=== PATIENT | male | born 1980 | race Caucasian/White ===

== ENCOUNTER → 2021-03-21 03:43 | Outpatient (CLI) | payer BC, SELFPAY ==
[2021-03-21 21:56] LABS: SARS-CoV-2 RNA PCR Positive
== END ==
PROVIDERS: PCP Family Medicine Adolescent Medicine; Visit Provider Physician Assistant
DX: U07.1 COVID-19 (principal)
CPT/HCPCS: C9803; U0003; U0005

== ENCOUNTER 2022-05-09 18:32 | Emergency (ER) | payer BC, SELFPAY ==
[2022-05-09 18:34] VITALS: BP 168/108; PULSE 88; RESP 18; TEMP 37.1; O2SAT 98
--- NOTE | 2022-05-09 18:53 | PC.NURSE ---
EDP at bedside to assess pt.
--- NOTE | 2022-05-09 18:56 | ED.GENADULT ---
HPI - General Adult General Chief complaint: Unspecified Stated complaint: RECTAL BLEEDING, ?HEMORRHOID Time Seen by Provider: 05/09/22 18:46 History of Present Illness HPI narrative: 42-year-old male here for evaluation of perirectal pain and bleeding when he wipes with toilet tissue for the past 10 days. Patient states that he has a history of anal fissures and states it feels similar. He has attempted sitz bath's and topical Vaseline without relief of his symptoms. Reports chronic loose stools due to metformin use. No lightheadedness, syncope, fevers or chills. Related Data Allergies Allergy/AdvReac Type Severity Reaction Status Date / Time meloxicam AdvReac Severe Hives Verified 02/05/22 15:24 Review of Systems Review of Systems: Gen.: Denies fevers or chills Eyes: Denies eye pain or visual change ENT: Denies congestion Respiratory: Denies shortness of breath or cough CV: Denies chest pain or palpitations GI: Denies abdominal pain nausea, emesis or diarrhea reports perirectal pain and bleeding. Denies burning, urgency, frequency or hematuria Musculoskeletal: Denies back pain or muscle pain Neuro: Denies numbness, tingling, weakness or focal weakness Skin: Denies rash Except as documented, all other systems reviewed and negative PMFSH Social History Social History Smoking status: Former smoker Exam Narrative: APPEARANCE: Well appearing, no pain in distress, well-nourished. Head: Normocephalic and atraumatic. EYES: PERRLA/EOMI, conjunctivae clear NOSE: No nasal drainage EARS: External ear normal in appearance THROAT: Oropharynx is clear. Mucous membranes are moist. NECK: Supple. No adenopathy, no masses. RESPIRATORY: Airway patent, respirations nonlabored. Clear to auscultation bilaterally, no rales, rhonchi, wheezing. CARDIOVASCULAR: Regular rate and rhythm without murmurs, rubs, or gallops. : Patient has a 0.5cm external hemorrhoid at the 7 o'clock position that is tender to palpation. No active bleeding. ABDOMINAL: Normoactive bowel sounds. Soft, nontender, nondistended. No rebound tenderness or guarding. MUSCULOSKELETAL: Extremities are warm and well-perfused. Moves all extremities well. No edema. NEURO: Normal speech. No focal neurologic deficits. SKIN: Skin is warm and dry. No rashes. PSYCHIATRIC: Normal affect/mood.. Course Vital Signs Vital signs: Vital Signs Temperature 98.8 F 05/09/22 18:34 Pulse Rate 88 05/09/22 18:34 Respiratory Rate 18 05/09/22 18:34 Blood Pressure 168/108 H 05/09/22 18:34 Pulse Oximetry 98 05/09/22 18:34 Temperature 98.8 F 05/09/22 18:34 Pulse Rate 88 05/09/22 18:34 Respiratory Rate 18 05/09/22 18:34 Blood Pressure 168/108 H 05/09/22 18:34 Pulse Oximetry 98 05/09/22 18:34 Medical Decision Making MDM Narrative Medical decision making narrative: 42-year-old male here for evaluation of perirectal pain and swelling with evidence of an external hemorrhoid on exam. Patient has no systemic symptoms and has normal vital signs. Will DC home with Anusol suppositories and GI follow-up. No indication for labs or imaging at this time. Return precautions were discussed and he voiced understanding. Vital Signs Vital Signs: Vital Signs Temperature 98.8 F 05/09/22 18:34 Pulse Rate 88 05/09/22 18:34 Respiratory Rate 18 05/09/22 18:34 Blood Pressure 168/108 H 05/09/22 18:34 Pulse Oximetry 98 05/09/22 18:34 Temperature 98.8 F 05/09/22 18:34 Pulse Rate 88 05/09/22 18:34 Respiratory Rate 18 05/09/22 18:34 Blood Pressure 168/108 H 05/09/22 18:34 Pulse Oximetry 98 05/09/22 18:34 Discharge Plan Discharge Clinical Impression: External hemorrhoid Patient Disposition: Home, Self-Care Condition: Stable Instructions: Antibiotic Form, Hemorrhoids (ED) Additional Instructions: You were found to have an external hemorrhoid on exam. Please use the Anusol suppositories nightly. Use stool soft
== END 2022-05-09 19:13 | disposition home or self-care (01) ==
LOC: ANHED 18:56
PROVIDERS: Emergency Provider Physician Assistant; PCP Family Medicine Adolescent Medicine
DX: K64.4 Residual hemorrhoidal skin tags (principal)
CPT/HCPCS: 99283

== ENCOUNTER 2022-05-15 01:06 | Day surgery (SDC) | payer BC, SELFPAY ==
[2022-05-14 11:29] VITALS: BMI 37.5
--- NOTE | 2022-05-14 11:33 | PC.NURSE ---
Report to the Outpatient Waiting Room, entrance under the green pavilion located off [facility], at time 1200 on date 05/15/22. Planned Procedure Time: 1400. Time changes happen often and if your time is changed the preop area will call you the afternoon before. - You and your visitor will be asked to self-screen and do not enter if you have any COVID symptoms. - Only one visitor is requested with a max of two and NO children visitors are allowed at this time. - The patient visitor may be requested to leave or wait in car when not with patient due to distancing restrictions. - A mask is optional within the hospital at this time. Patients may ONLY have clear liquids THE REST OF TODAY - No food OR DRINK from midnight until time of surgery Take the following medications with a SIP of water the morning of surgery: ANTIBIOTIC DO NOT STOP ANY OF YOUR OTHER PRESCRIPTION MEDICATIONS PRIOR TO SURGERY EXCEPT THE FOLLOWING Medications to discontinue per physician: N/A Date to take last dose: N/A DULCOLAX 5MG AT BEDTIME FLEETS ENEMA NIGHT BEFORE AND MORNING OF SURGERY Please no make-up, nail nepali, hairspray, perfume, deodorant, or body powder the day of surgery. No jewelry (including any body piercings) or valuables the day of surgery, leave them at home. Please take a shower or bath the night before, or the morning of, surgery with an antibacterial soap. Wear comfortable, loose fitting clothing. - Jewelry must be removed prior to entering the operating room. Rings and piercings that are not removed may be cut off. - The hospital will not accept responsibility for valuables. - Please leave all valuables, including medications, at home the day of surgery. If you are going home after surgery, a licensed line haul driver must drive you home. - NO public transportation without another adult if you receive anesthesia. - We recommend that an adult stay with you for 24 hours following discharge. - We also recommend that you do not drive, make important decision, drink alcoholic beverages, or take any drugs that were not prescribed by your health care provider for at least 24 hours after your discharge time. Follow any additional instructions given to you from your surgeon. If you or anyone in your household have experienced Covid symptoms in the past week, please notify your surgeon or the nurse liaison at the phone number below for possible testing. Telephone instructions given to PT - BIBI CHIN and asked if any additional questions and then verbalized understanding. Patient advised to call surgeon office or pre surgery nurse liaison [phone] if any additional questions.
[2022-05-15] VITALS (8 sets, daily range): BP systolic 133–164; BP diastolic 88–117; PULSE 64–87; RESP 16–22; TEMP 36.2–36.3; O2SAT 97–99
--- NOTE | 2022-05-15 10:43 | WPDHPUPDATE1 ---
History and Physical Update Update Date/Time: 05/15/22 10:43 History and Physical has been reviewed, including an updated exam of the patient. There are NO changes in the patient's condition. Risks, benefits, and alternatives have been discussed and questions answered. Patient agrees to proceed with procedure.
[2022-05-15] MEDS: ACETAMINOPHEN 500 MG TABLET 1000 MG PO (11:13)
[2022-05-15] MEDS: LACTATED RINGERS 1,000 ML 30 ML IV CONT ×3 (11:15→13:28)
[2022-05-15] MEDS: KETOROLAC 15 MG/ML VIAL (*BKC) IV PUSH (11:23)
[2022-05-15 11:34] LABS: Anion Gap 10 mmol/L (8-16); Blood Urea Nitrogen 13 mg/dL (9-20); Calcium 9.2 mg/dL (8.4-10.2); Carbon Dioxide 29 mmol/L (22-30); Chloride 99 mmol/L (98-107); Estimated CRCL calculation 122 ml/min; Estimated Glomerular Filt Rate > 60; Glucose 310 mg/dL (65-110); Potassium 4.6 mmol/L (3.4-5.0); Sodium 138 mmol/L (137-145)
--- NOTE | 2022-05-15 11:54 | SUR.PREOP ---
1154-DR. FIGUEROA AWARE OF THIS AM [facility] GLUCOSE 310.
--- NOTE | 2022-05-15 12:06 | WPDANESEPPF ---
Anes - Initial Pre Proc Eval Procedure: Operation Date: 05/15/22 14:00 Proposed Procedures p Excision Thrombosed External Hemorrhoid - Eric Finnegan MD Date/Time: 05/15/22 12:06 Surgeon: Eric Finnegan MD Pre Op Diagnosis: Thrombosed Ext Hemorrhoid Patient Data Age: 42 Gender: M Height: 1.78 m Weight: 116.6 kg Last Vital Signs Temp 36.3 C L 05/15/22 10:25 Pulse 87 05/15/22 10:25 Resp 20 05/15/22 10:25 BP 147/96 H 05/15/22 10:25 Pulse Ox 99 05/15/22 10:25 O2 Del Method Room Air 05/15/22 10:25 Allergies Allergy/AdvReac Type Severity Reaction Status Date / Time meloxicam AdvReac Severe Hives Verified 05/15/22 10:29 Home Medications Medication Instructions Recorded Confirmed Type testosterone (AndroGel) 2 pump topical DAILY #150 grams 02/05/22 05/15/22 Rx lisinopril 20 mg tablet 20 mg PO HS 05/15/22 05/15/22 History metformin 500 mg tablet,extended 2,000 mg PO HS 05/15/22 05/15/22 History release 24 hr sitagliptin phosphate 100 mg 100 mg PO HS 05/15/22 05/15/22 History tablet (Januvia) Laboratory Tests 05/15/22 11:12 Sodium 138 mmol/L mmol/L (137-145) Potassium 4.6 mmol/L mmol/L (3.4-5.0) Chloride 99 mmol/L mmol/L (98-107) Carbon Dioxide 29 mmol/L mmol/L (22-30) Anion Gap 10 mmol/L mmol/L (8-16) BUN 13 mg/dL mg/dL (9-20) Creatinine 0.90 mg/dL mg/dL (0.7-1.3) Estim Creat Clear Calc 122 ml/min ml/min Estimated GFR > 60 (59 - ) Glucose 310 mg/dL H mg/dL (65-110) Calcium 9.2 mg/dL mg/dL (8.4-10.2) Patient hx anesthesia problems: none Family hx anesthesia problems: none Results Review: All pre-operative results and documents have been reviewed as part of the pre-operative evaluation. [facility] Past Medical History Medical History Abscess, perianal Hematochezia Obesity Rectal pain Surgical History Surgical History Carpal tunnel syndrome of right wrist 2020 Family History Family History Other Hypertension Social History Social History Smoking packs per day: 1 Smoking cigarettes per day: 20.0 Years smoked: 15 Smoking pack-years: 15.00 Smoking status: Former smoker Tobacco type: cigarettes Smoking end date: 03/01/15 Alcohol intake: current Drinks per week: 2 Substance use: never Substance use type: does not use Living arrangements: with family Spiritual care concerns: No Anes - Eval Final PreProcedure Day of Procedure 05/15/22 12:06 Patient weight: obese Heart: regular rate and rhythm Lungs: clear to auscultation Airway: Mallampati scale class 1 Neurological: alert and oriented Last oral intake: >/= 8 hours ASA classification: III Emergent: no Anesthetic plan: proceed Anesthesia type and monitoring: general GIVS and standard monitoring Results Review: All pre-operative results and documents have been reviewed as part of the pre-operative evaluation. Informed Consent: The patient's anesthetic plan and its attendant risks and benefits were discussed with the patient/family/POA. Questions were solicited and answers provided to the satisfaction of the patient/family/POA.
[2022-05-15] MEDS: ceFAZolin 2 GM/D5W 50 ML 2 GM/50 ML BAG IVPB (12:28)
[2022-05-15] MEDS: BUPivacaine HCL 0.5% 10 ML AMP 20 ML INFILTRATE (13:11)
--- NOTE | 2022-05-15 13:12 | P.OP_ITS ---
Procedure Note - Detailed Date of Procedure 05/15/22 Pre-op Diagnosis Thrombosed Ext Hemorrhoid Post-op Diagnosis Other (Thrombosed external hemorrhoid, prolapsed internal hemorrhoid) Procedure Performed Excision left anterior thrombosed external hemorrhoid, rubber-band ligation prolapsed left anterior internal hemorrhoid Surgeon Eric Finnegan MD [employer] student Anesthesia MAC and Local (0.5% Marcaine with Exparel) Indications Patient has had rectal pain for a few days. He came to the office yesterday and was found to have a thrombosed external hemorrhoid in the right anterior location. He is taken to surgery now for excision. Findings The thrombosed hemorrhoid was in the right anterior location. He also had a prolapsed stage III internal hemorrhoid associated with the thrombosis. Description of Procedure Patient was taken to surgery and placed in prone position. Anesthesia was introduced and he was then placed in prone kemi-knife position. The buttocks were taped apart. Prep and drape was carried out. Inspection of the perianal area was performed. Small Hill-Brody anoscope was introduced and the anal canal was inspected. There was a prolapsed stage III internal hemorrhoid associated with the thrombosed external hemorrhoid both in the right anterior location. We then infiltrated local. 20 cc was infiltrated deep subdermal, 20 cc was infiltrated intra sphincteric. I excised the thrombosed external hemorrhoid. The wound was then closed with running locking 3-0 chromic suture. I then exposed the internal hemorrhoid and it was rubber-band ligated. I checked the remainder of the anal canal and no additional pathology was noted. The thrombosed hemorrhoid was sent to pathology. The wound was made hemostatic with gentle pressure. The wound was dressed with Xeroform gauze fluffs and Promise panties. Patient was then returned to a supine position, awakened and taken to recovery in good condition. Sponge and needle counts were correct x2. Estimated Blood Loss -5 Drains No Packing No Pathology Yes (Right anterior thrombosed external hemorrhoid) Complications No immediate complications Condition Stable Disposition PACU [facility] Billing Surgery - Charge Forward: Surgery Billing (Excision thrombosed external hemorrhoid, rubber-band ligation internal hemorrhoid.)
[2022-05-15 13:16] LABS: Glucose Point of Care 204 mg/dl (65-105)
--- NOTE | 2022-05-15 15:44 | SUR.PHASEII ---
Patient meets discharge criteria. Vital signs stable. IV removed. Patient dressed and awaiting ride home.
== END 2022-05-15 17:00 | disposition home or self-care (01) ==
PROVIDERS: Anesthesiology; PCP Family Medicine Adolescent Medicine; Visit Provider Surgery
PROC: (CPT 46320; principal; 2022-05-15 14:00)
DX: K64.8 Other hemorrhoids (principal); K64.2 Third degree hemorrhoids; Z79.84 Long term (current) use of oral hypoglycemic drugs; E66.9 Obesity, unspecified; Z68.36 Body mass index [BMI] 36.0-36.9, adult; Z87.891 Personal history of nicotine dependence
CPT/HCPCS: 46320; 36415; 80048; 82948; 88304; A9270; C9290; J0690; J1885; J2250; J2270; J2405; J2704; J7120

== ENCOUNTER 2023-09-28 15:57 | Emergency (ER) | payer BC, SELFPAY ==
[2023-09-28 15:58] VITALS: BP 145/99; PULSE 91; RESP 16; TEMP 36.7; O2SAT 99
--- NOTE | 2023-09-28 16:57 | PC.NURSE ---
pt stated he was going to leave and go to [facility].
== END 2023-09-28 16:57 | disposition left against medical advice (07) ==
PROVIDERS: PCP Family Medicine Adolescent Medicine
DX: S60.551A Superficial foreign body of right hand, initial encounter (principal)
CPT/HCPCS: 99199

== ENCOUNTER 2024-02-12 11:44 | Emergency (ER) | payer BC, SELFPAY ==
[2024-02-12 12:04] VITALS: BP 158/96; PULSE 87; RESP 17; TEMP 37.1; O2SAT 100
--- NOTE | 2024-02-12 12:38 | ED.DENTAL ---
HPI - Dental/Oral General Chief complaint: Dental/Oral Stated complaint: Tooth Infection Time Seen by Provider: 02/12/24 12:32 Source: patient and RN notes reviewed Mode of arrival: ambulatory Limitations: no limitations History of Present Illness HPI Narrative: Patient presents today complaining of right lower tooth pain since yesterday. States the tooth broke many years ago and it continues to chip. Denies facial swelling, shortness of breath, difficulty swallowing. Currently rates his pain 5/10 and has been taking aspirin without relief. He does have an appointment in 2 days with a dentist for evaluation. Related Data Allergies Allergy/AdvReac Type Severity Reaction Status Date / Time meloxicam AdvReac Severe Hives Verified 02/12/24 12:23 Review of Systems Review of Systems: CONSTITUTIONAL: Denies body aches, fever, chills, or sweats. EYES: Denies visual changes, redness, or discharge. ENT: Denies rhinorrhea, congestion, sore throat, or otalgia.+ tooth pain CARDIOVASCULAR: Denies chest pain, palpitations, or edema. RESPIRATORY: Denies cough or dyspnea. GASTROINTESTINAL: Denies abdominal pain, nausea, vomiting, or diarrhea. GENITOURINARY: Denies dysuria or hematuria. SKIN: Denies rash, itching, or wounds. MUSCULOSKELETAL: Denies back pain, joint pain, or myalgia. NEUROLOGIC: Denies headache, numbness, tingling, or weakness. PSYCH: Denies depression or anxiety. [facility] Past Medical History Medical History Obesity Hematochezia Rectal pain Abscess, perianal Surgical History Surgical History History of hemorrhoidectomy 05/15/2022 - Excision left anterior thrombosed external hemorrhoid, rubber-band ligation prolapsed left anterior internal hemorrhoid Carpal tunnel syndrome of right wrist 2019 Family History Family History Other Hypertension Social History Social History Smoking packs per day: 1 Smoking cigarettes per day: 20.0 Years smoked: 15 Smoking pack-years: 15.00 Smoking status: Former smoker Tobacco type: cigarettes Smoking end date: 03/01/15 Alcohol intake: current Drinks per week: 2 Substance use: never Substance use type: does not use Living arrangements: with family Spiritual care concerns: No Comments At time of signature, I have reviewed and agree with nursing past medical, surgical, social and family history unless otherwise noted. Please see nursing chart for further information. There is no relevant family history pertinent to the presenting complaint Exam Narrative: GENERAL: Well-appearing, well-nourished, and in no acute distress. HEAD: Normocephalic, atraumatic. EYES: EOMI. No redness or drainage. Conjunctivae normal. ENT: Mucous membranes pink and moist. Tooth number 32 has posterior portion missing. Gumline appears normal. No facial swelling noted. No trismus. NECK: Normal AROM. Supple. No lymphadenopathy. CHEST: No respiratory distress. EXTREMITIES: Normal range of motion. No edema. SKIN: Warm, dry, no rash. Capillary refill normal. Normal skin turgor. NEURO: No focal deficits. Alert and oriented x3. Gait steady. PSYCH: Normal affect. No signs of depression or anxiety. Course Course Level of Care: Express Care Visit Vital Signs Vital signs: Vital Signs Temperature 98.8 F 02/12/24 12:04 Pulse Rate 87 02/12/24 12:04 Respiratory Rate 17 02/12/24 12:04 Blood Pressure 158/96 H 02/12/24 12:04 Pulse Oximetry 100 02/12/24 12:04 Temperature 98.8 F 02/12/24 12:04 Pulse Rate 87 02/12/24 12:04 Respiratory Rate 17 02/12/24 12:04 Blood Pressure 158/96 H 02/12/24 12:04 Pulse Oximetry 100 02/12/24 12:04 Reviewed MDM - Dental/Oral MDM Narrative Medical decision making narrative: Patient will be prescribed a course of amoxicillin for possible infection. Instructed to take Tylenol or ibuprofen for pain. Anticipatory guidance given. Differential Diagnosis Differential diagnosis: Likely gingival abscess, dental caries, toothache, dental abscess and fracture of tooth Critical Care Time Critical Care Time Critical Care Time: No Discharge Plan Discharge Clinical Impression: Fracture of tooth Qualifiers: Encounter type: initial encounter Fracture type: closed Qualified Code(s): S02.5XXA - Fracture of tooth (traumatic), initial encounter for closed fracture Patient Disposition: Home, Self-Care Condition: Stable Instructions: Antibiotic Form Additional Instructions: Please take the amoxicillin as prescribed. Take Tylenol or ibuprofen for pain, if able. Follow-up with your dentist as scheduled. Go to the ER immediately if you develop fever, facial swelling, difficulty breathing or swallowing. Your blood pressure was elevated above 120/80 today at Urgent Care. This puts you above the threshold for follow up. Please schedule a followup visit with your personal physician as soon as possible, for further evaluation and treatment. Even blood pressure exceeding 120/80 may indicate pre-hypertension. Patient Language: Swedish Prescriptions: New amoxicillin 875 mg tablet 875 mg PO Q12H 10 Days Qty: 20 0RF No Action Januvia 100 mg tablet 100 mg PO HS Qty: 90 2RF testosterone [AndroGel] 20.25 mg/1.25 gram (1.62 %) gel in metered-dose pump 2 pump topical DAILY Qty: 150 3RF Rx Instructions: apply 1 pump amount over max area of EACH upper arm and shoulder sildenafil 100 mg tablet 100 mg PO DAILY PRN (Reason: sexual activity) Qty: 6 8RF Rx Instructions: administer 30 minutes to 4 hours before activity atorvastatin 10 mg tablet 10 mg PO DAILY Qty: 90 3RF glimepiride 2 mg tablet 2 mg PO QAM Qty: 90 1RF Rx Instructions: administer with breakfast metformin 500 mg tablet extended release 24 hr 2,000 mg PO HS Qty: 360 1RF lisinopril 20 mg tablet 20 mg PO HS Qty: 90 0RF Patient Comments: TAKES AT HS Follow-up/Referrals: Josh Hu MD [Primary Care Provider] - Time of Disposition: 12:43
== END 2024-02-12 12:47 | disposition home or self-care (01) ==
PROVIDERS: Emergency Provider Nurse Practitioner; PCP Family Medicine Adolescent Medicine
DX: S02.5XXA Fracture of tooth (traumatic), initial encounter for closed fracture (principal); X58.XXXA Exposure to other specified factors, initial encounter; E66.9 Obesity, unspecified; Z68.36 Body mass index [BMI] 36.0-36.9, adult; Z87.891 Personal history of nicotine dependence
CPT/HCPCS: 99213; G0463

== ENCOUNTER 2024-05-25 14:45 | Outpatient (RCR) | payer BC, SELFPAY ==
[2024-04-13 15:09] VITALS: BMI 37.8
[2024-04-13 15:10] VITALS: BMI 37.8
[2024-05-25 15:05] VITALS: BMI 36.4
== END 2024-07-10 09:23 | disposition home or self-care (01) ==
LOC: ANHDMC 14:45
PROVIDERS: PCP Family Medicine Adolescent Medicine; Visit Provider Nurse Practitioner Family
DX: E11.3293 Type 2 diabetes mellitus with mild nonproliferative diabetic retinopathy without macular edema, bilateral (principal); Z71.3 Dietary counseling and surveillance
CPT/HCPCS: 97802; 97803